=== PATIENT | female | born 1935 | race Caucasian/White ===

== ENCOUNTER 2021-08-30 15:31 | Outpatient (CLI) | payer MEDICARE, BC | END 2021-08-30 15:32 | disposition home or self-care (01) | LOC: BICULT 15:31 | PROVIDERS: ATTEND Urology | DX: R35.0 Frequency of micturition (principal); Z87.440 Personal history of urinary (tract) infections | CPT/HCPCS: 76770 ==

== ENCOUNTER 2022-12-07 14:01 | Outpatient (CLI) | payer MEDICARE, BC | END 2022-12-07 14:02 | disposition home or self-care (01) | LOC: BICMAMMO 14:01 | PROVIDERS: ATTEND Internal Medicine | DX: Z12.31 Encounter for screening mammogram for malignant neoplasm of breast (principal); Z80.3 Family history of malignant neoplasm of breast; Z91.89 Other specified personal risk factors, not elsewhere classified | CPT/HCPCS: 77063; 77067 ==

== ENCOUNTER 2023-10-18 07:56 | Outpatient (CLI) | payer MEDICARE, BC | END 2023-10-18 07:57 | disposition home or self-care (01) | LOC: CT 07:56 | PROVIDERS: ATTEND Internal Medicine | DX: J32.4 Chronic pansinusitis (principal) ==

== ENCOUNTER 2024-03-04 15:33 | Outpatient (CLI) | payer MEDICARE, BC | END 2024-03-04 15:34 | disposition home or self-care (01) | LOC: BICULT 15:33 | PROVIDERS: ATTEND Internal Medicine | DX: N18.32 Chronic kidney disease, stage 3b (principal); N28.1 Cyst of kidney, acquired; E83.52 Hypercalcemia | CPT/HCPCS: 71046; 76770 ==

== ENCOUNTER 2024-11-28 11:54 | Outpatient (CLI) | payer MEDICARE, BC | END 2024-11-28 11:55 | disposition home or self-care (01) | LOC: BICMAMMO 11:54 | PROVIDERS: ATTEND Internal Medicine | DX: Z78.0 Asymptomatic menopausal state (principal); M85.851 Other specified disorders of bone density and structure, right thigh; M85.852 Other specified disorders of bone density and structure, left thigh | CPT/HCPCS: 77080 ==